=== PATIENT | female | born 1950 | race Caucasian/White ===

== ENCOUNTER 2025-03-11 16:38 | Outpatient (CLI) | payer MEDICARE, OTHER ==
[~2025-03-11 16:38] MED LIST: iohexol 300mg/ml 100ml inj. ONE
--- NOTE | 2025-03-11 17:47 | RADIOLOGY REPORT ---
EXAM: CT CT HEAD W/WO IV CONTRAST INDICATION: OTHER HEADACHE SYNDROME TECHNIQUE: CT of the head without intravenous contrast. Radiation Dose Information: CT Dose: CTDI volume is 62.05 mGy. Dose-length product is 1042.93 mGy*cm The dose indicators for CT are the volume Computed Tomography (CT) Dose Index (CTDIvol) and the Dose Length Product (DLP), and are measured in units of mGy and mGy-cm, respectively. These indicators are not patient dose, but values generated from the CT scanner acquisition factors. The report includes radiation exposure data for exposures received during this examination. COMPARISON: None FINDINGS: There is no evidence of acute intracranial hemorrhage, extra-axial collection, mass effect, midline shift, herniation or hydrocephalus. The ventricles, sulci and cisterns are age appropriate. The lobato-white differentiation is intact. Patchy periventricular and subcortical white matter hypoattenuation is nonspecific but may be related to small vessel ischemic disease. The visualized paranasal sinuses and mastoid air cells are clear. The surrounding soft tissues and osseous structures are unremarkable. No abnormal intracranial enhancement. IMPRESSION: No acute intracranial abnormality.
== END 2025-03-11 23:59 | disposition home or self-care (01) ==
LOC: RAD 16:38
PROVIDERS: ATTEND Family Medicine
DX: I67.89 Other cerebrovascular disease (principal); G44.89 Other headache syndrome; R90.82 White matter disease, unspecified
CPT/HCPCS: 70470; Q9967